=== PATIENT | female | born 1955 | race Caucasian/White ===

== ENCOUNTER → 2017-03-02 | Outpatient (CLI) | payer OTHER | LOC: FIMAGING 09:34 | PROVIDERS: ATTEND Obstetrics & Gynecology | DX: Z12.31 Encounter for screening mammogram for malignant neoplasm of breast (principal) | CPT/HCPCS: G0202 ==

== ENCOUNTER → 2017-09-30 | Outpatient (CLI) | payer OTHER | LOC: BMCIMAGING 13:38 | PROVIDERS: ATTEND Physician Assistant | DX: M16.12 Unilateral primary osteoarthritis, left hip (principal) ==

== ENCOUNTER → 2017-10-29 | Outpatient (CLI) | payer OTHER | LOC: FIMAGING 15:53 | PROVIDERS: ATTEND Obstetrics & Gynecology Gynecology | DX: D25.1 Intramural leiomyoma of uterus (principal); D25.0 Submucous leiomyoma of uterus; N95.0 Postmenopausal bleeding ==

== ENCOUNTER → 2018-03-15 | Outpatient (CLI) | payer OTHER | LOC: FIMAGING 12:57 | PROVIDERS: ATTEND Family Medicine | DX: Z12.31 Encounter for screening mammogram for malignant neoplasm of breast (principal) ==

== ENCOUNTER 2018-05-12 06:24 | Inpatient (IN) | payer OTHER ==
[~2018-05-12 06:24] MED LIST changes: +ACETAMINOPHEN 325 MG TAB PO ONE; -DEXAMETHASONE 10 MG/ML VIAL ONE; +DEXAMETHASONE 4 MG/ML VIAL IVP ONE; +FAMOTIDINE 20 MG TAB PO ONE; +LIDOCAINE 1% 2 ML INJ ID PRN; +LR 1,000 ML IV ONE; +ROPIVACAINE 0.2% 80 MG, EPINEPHrine 0.2 MG, KETOROLAC TROMETHAMINE 30 MG in SYRINGE 0 ML IU ONE; +TRANEXAMIC ACID 3,000 MG in NS (SYRINGE) 50 ML IRR ONE; +ceFAZolin 2 GM/DEXTROSE 100 ML IV ONE
[2018-05-12] MEDS ORDERED: TRANEXAMIC ACID 3,000 MG/50 ML BAG IRR ONE (06:41)
[2018-05-12] MEDS ORDERED: MIDAZOLAM 2 MG/2 ML VIAL IVP ONE (06:52)
--- NOTE | 2018-05-12 06:52 | PDANEPAE ---
ANE History of Present Illness OA here for DINORA ANE Past Medical History - Cardiovascular History Hx Hypertension: Yes Hx Arrhythmias: No Hx Chest Pain: No Hx Coronary Artery / Peripheral Vascular Disease: No Hx CHF / Valvular Disease: No Hx Palpitations: No - Pulmonary History Hx COPD: No Hx Asthma/Reactive Airway Disease: No Hx Recent Upper Respiratory Infection: No Hx Oxygen in Use at Home: No Hx Sleep Apnea: No Sleep Apnea Screening Result - Last Documented: Negative Pulmonary History Comment: cold induces cough - Neurologic History Hx Cerebrovascular Accident: No Hx Seizures: No Hx Dementia: No - Endocrine History Hx Diabetes: No - Renal History Hx Renal Disorders: No - Liver History Hx Hepatic Disorders: No - Neurological & Psychiatric Hx Hx Neurological and Psychiatric Disorders: Yes Neurological / Psychiatric History Comment: situational anxiety - Cancer History Hx Cancer: Yes Cancer History Comment: basal cell - Congenital Disorder History Hx Congenital Disorders: No - GI History Hx Gastrointestinal Disorders: Yes Gastrointestinal History Comment: situational IBS upset with stress - Other Health History Other Health History: sensitivity around mouth. cold sensitive ENT - Chronic Pain History Chronic Pain: Yes (right shoulder pain and right thumb) - Surgical History Prior Surgeries: tonsillectomy as child. tubal. breast augmentation. mastopexy and abdominoplasty. right shoulder surgeries x2. left hand fusion to thumb ANE Review of Systems Review of Systems: - Exercise capacity METS (RN): 5 METS ANE Patient History - Allergies Allergies/Adverse Reactions: No Known Allergies Allergy (Verified 04/14/18 12:08) - Home Medications Home medications: home medication list seen and reviewed Home Medications: Cholecalciferol Vit D3 [Vitamin D3 (*)] 1,000 units PO DAILY 04/09/18 [Last Taken 04/28/18] Cmpnd Progesterone 100mg 100 mg PO HS 04/09/18 [Last Taken 05/06/18] Estradiol [Vivelle-Dot 0.0375MG (*)] 0.0375 mg TD SuWe@0800 04/09/18 [Last Taken 05/05/18] Fluticasone Nasal [Flonase Nasal [place] (RX)] 1 sprays NASAL DAILY PRN 04/09/18 [ Last Taken 04/21/18] Herbals/Supplements -Info Only 1 ea PO DAILY 04/09/18 [Last Taken 04/28/18] Hydrochlorothiazide [HCTZ (*)] 12.5 mg PO DAILY 04/09/18 [Last Taken 05/11/18] Ibuprofen [Motrin (*)] 200 mg PO DAILY PRN 04/09/18 [Last Taken 05/06/18] buPROPion XL [Wellbutrin Xl] 150 mg PO DAILY 04/09/18 [Last Taken 05/12/18] - NPO status NPO Status: no food or drink >8 hours NPO Since - Liquids (Date): 05/12/18 NPO Since - Liquids (Time): 03:40 NPO Since - Solids (Date): 05/11/18 NPO Since - Solids (Time): 19:30 - Anes Hx Anes Hx: no prior problems - Smoking Hx Smoking Status: Former smoker - Alcohol Use Alcohol Use: Occasionally - Family Anes Hx Family Anes Hx: none Family Hx Anesthesia Complications: none ANE Labs/Vital Signs - Vital Signs Blood Pressure: 127/87 Heart Rate: 80 Respiratory Rate: 15 O2 Sat (%): 98 Height: 171.45 cm Weight: 66.678 kg ANE Physical Exam - Airway Neck exam: FROM Mallampati Score: Class 1 Mouth exam: normal dental/mouth exam - Pulmonary Pulmonary: no respiratory distress, clear to auscultation - Cardiovascular Cardiovascular: regular rate and rhythym, no murmur, rub, or gallop - ASA Status ASA Status: II ANE Anesthesia Plan Anesthesia Plan: GA with mask, spinal
--- NOTE | 2018-05-12 07:09 | PDHPUP ---
History & Physical Update H&P update statement: This history and physical update is based on an assessment of the patient which was completed after admission or registration (within 24 hours), but prior to the surgery/procedure. H&P update: H&P reviewed & patient examined, no change in patient's condition since H&P completed
[2018-05-12] MEDS ORDERED: PROPOFOL/EMULSION 500 MG/50 ML BOTTLE IV ONE ×2 (07:13→08:11)
[2018-05-12] MEDS ORDERED: CYCLOBENZAPRINE 10 MG TAB PO PRN (07:24)
[2018-05-12] MEDS ORDERED: ONDANSETRON 4 MG/2 ML VIAL IVP PRN ×2 (07:24→08:48)
[2018-05-12] MEDS ORDERED: LACTULOSE 20 GM/30 ML UDCUP PO PRN (07:24)
[2018-05-12] MEDS ORDERED: DIPHENOXYLATE/ATROPINE LOMOTIL 1 TAB PO PRN (07:24)
[2018-05-12] MEDS ORDERED: diphenhydrAMINE 25 MG CAP PO PRN (07:24)
[2018-05-12] MEDS ORDERED: METOCLOPRAMIDE 10 MG/2 ML VIAL IVP PRN (07:24)
[2018-05-12] MEDS ORDERED: PROMETHAZINE HCL 25 MG/ML INJ IVP PRN (07:24)
[2018-05-12] MEDS ORDERED: POLYETHYLENE GLYCOL 3350 17 GM PKT PO PRN (07:24)
[2018-05-12] MEDS ORDERED: TEMAZEPAM 15 MG CAP PO PRN (07:24)
[2018-05-12] MEDS ORDERED: ONDANSETRON DISINTEGRATING 4 MG TAB PO PRN (07:24)
[2018-05-12] MEDS ORDERED: BISACODYL 10 MG SUPP PR PRN (07:24)
[2018-05-12] MEDS ORDERED: MAGNESIUM HYDROXIDE 30 ML UDCUP PO PRN (07:24)
[2018-05-12] MEDS ORDERED: PROMETHAZINE HCL 25 MG SUPPR PR PRN (07:24)
[2018-05-12] MEDS ORDERED: LR 1,000 ML IV SCH (07:30)
--- NOTE | 2018-05-12 08:42 | POSTOPPROG ---
Post Op Note Date of Operation: 05/12/18 Surgeon: Rakesh Merrill Ride Operator: carmen merrill PA-C Anesthesiologist: Dr. partida Anesthesia: Spinal Pre-op Diagnosis: left hip OA Post-op Diagnosis: same Indication: left hip pain Procedure: L DINORA ant approach, robot assisted Findings: severe hip OA Inf/Abcess present in the surg proc area at time of surgery?: No EBL: 100-500
[2018-05-12] MEDS ORDERED: NALOXONE HCL 0.4 MG/ML INJ IVP PRN (08:48)
[2018-05-12] MEDS ORDERED: HYDROCODONE/APAP 5/325 TAB PO PRN (08:48)
[2018-05-12] MEDS ORDERED: oxyCODONE IR 5 MG TAB PO PRN (08:48)
[2018-05-12] MEDS ORDERED: ACETAMINOPHEN 500 MG TAB PO PRN (08:48)
--- NOTE | 2018-05-12 08:50 | POSTANESTH ---
Post Anesthetic Evaluation Cardiovascular Status: Normal, Stable, Similar to Pre-Op Cond Respiratory Status: Normal, Stable, Similar to Pre-op Cond. Level of Consciousness/Mental Status: Can Participate in Eval, Alert and Oriented Pain Control: Adequate, Prn Tx Ordered Nausea/Vomiting Control: Adequate, Prn Tx Ordered Complications Possibly Related to Anesthesia: None Noted
[2018-05-12] MEDS ORDERED: FLUTICASONE NASAL 120 SPRAYS/16 GM MDI EACHNARE PRN (09:00)
[2018-05-12] MEDS ORDERED: fentaNYL 100 MCG/2 ML INJ ONE (09:00)
[2018-05-12] MEDS: fentaNYL 100 MCG/2 ML INJ IVP PRN ×2 (09:04→09:10)
[2018-05-12] MEDS ORDERED: HYDROmorphONE/DILAUDID 1 MG/ML INJ ONE ×2 (09:16→10:07)
[2018-05-12] MEDS: HYDROmorphONE/DILAUDID 1 MG/ML INJ IVP PRN ×5 (09:19→10:14)
[2018-05-12] MEDS ORDERED: HYDROCODONE/APAP 5/325 TAB ONE (09:33)
[2018-05-12] MEDS ORDERED: DIAZEPAM 5 MG/ML 1 ML SYR IVP PRN (10:21)
[2018-05-12] MEDS ORDERED: KETOROLAC 15 MG/1 ML SDV ONE (10:22)
[2018-05-12] MEDS ORDERED: DIAZEPAM 5 MG/ML 1 ML SYR ONE (10:24)
--- NOTE | 2018-05-12 10:43 | PDMN ---
Medical Necessity Medical necessity: [facility] [place] S560 Hip Arthroplasty: 62 y/o s/p L DINORA, anteriror, CPT 10595, IP only
[2018-05-12] MEDS: SENNOSIDES/DOCUSATE SODIUM TAB PO SCH ×2 (11:19→22:13)
[2018-05-12] MEDS: ACETAMINOPHEN 325 MG TAB PO SCH ×2 (11:42→17:55)
[2018-05-12] MEDS: oxyCODONE IR 5 MG TAB PO PRN ×4 (11:42→22:13)
[2018-05-12] MEDS: ceFAZolin 2 GM/DEXTROSE 100 ML IV SCH (14:59)
[2018-05-12] MEDS: ASPIRIN 81 MG CHEWABLE TAB PO SCH (22:13)
[2018-05-12] MEDS: FAMOTIDINE 20 MG TAB PO SCH (22:14)
[2018-05-13] MEDS: ACETAMINOPHEN 325 MG TAB PO SCH ×3 (00:10→12:30)
[2018-05-13] MEDS: ceFAZolin 2 GM/DEXTROSE 100 ML IV SCH (00:10)
[2018-05-13 04:46] VITALS: BP 105/64
[2018-05-13] MEDS: oxyCODONE IR 5 MG TAB PO PRN ×2 (06:13→09:51)
--- NOTE | 2018-05-13 08:56 | SOAPPROG ---
SOAP Progress Note Assessment/Plan: Assessment: Patient is doing well POD 1 s/p L DINORA Pain management: pain is well controlled on oral pain meds. VTE ppx: recommend aspirin 81 mg BID for 4 weeks, cont JENNY and SCDs Anemia: level is expected initially postop. Asymptomatic. Continue to monitor D/c planning: d/c to home today pending release from PT Plan: 05/13/18 08:55 Subjective: patient is doing well, mild pain this morning, did not receive tylenol as nurse did not give it. patient states she didnt refuse it. denies SOB ,chest pain and N/V Objective: Vital Signs Temp Pulse Resp BP Pulse Ox 36.8 C 71 16 105/64 97 05/13/18 08:00 05/13/18 08:00 05/13/18 08:00 05/13/18 08:00 05/13/18 08:00 Laboratory Results 05/13/18 05:19 05/12/18 05/13/18 05/14/18 05:59 05:59 05:59 Intake Total 3037 500 Output Total 2350 900 Balance 687 -400 LLE; incision dressing is clean and dry, NVI, +pf/df ICD10 Worksheet Patient Problems: Problems Problem Status Onset Primary localized osteoarthritis of left hip Acute
[2018-05-13] MEDS ORDERED: HYDROCHLOROTHIAZIDE 12.5 MG CAP PO SCH (09:00)
[2018-05-13] MEDS ORDERED: buPROPion XL 150 MG TAB PO SCH (09:00)
--- NOTE | 2018-05-13 09:19 | GOP ---
[f rep st] OPERATIVE REPORT DATE OF OPERATION: 05/12/2018 SURGEON: Ej Rodney MD LABOR ECONOMIST: Nicole Rodney, MARIELLA. ANESTHESIA: Spinal. PREOPERATIVE DIAGNOSIS: Left hip osteoarthritis. POSTOPERATIVE DIAGNOSIS: Left hip osteoarthritis. PROCEDURE PERFORMED: Total hip arthroplasty with computer navigation robotic assistance. FINDINGS: ESTIMATED BLOOD LOSS: 200 cc. INDICATIONS: The patient has progressively worsening arthritis of the hip which has failed medical m anagement. The patient understands the treatment option including continued non-operative care and h as selected surgical intervention. The patient has decided to undergo total hip arthroplasty via the direct anterior approach understanding the risks of the procedure including, but not limited to, phillip rovascular injury, infection, persistent pain, component wear and loosening, deep venous thrombosis, pulmonary embolism, limb length inequality (including dislocation), and intraoperative fractures. DESCRIPTION OF PROCEDURE: After proper identification of the patient including verification and delmer ing the surgical site, the patient was brought to the operating room and placed in the supine positio n. All bony prominences were well padded. Anesthesia was induced without complication and intraveno us prophylactic antibiotics were administered prior to skin incision. After prepping and draping in the usual sterile fashion, attention was drawn to the contralateral pel vis for attachment of the computer navigation tracker. Three percutaneous incisions were made over t he iliac crest and the pelvic tracker was affixed using threaded 3.5 mm pins yielding excellent fixat ion. Using computer navigation the patient's leg length and topographical pelvic anatomy was registe red without complication. Attention was then drawn to surgical exposure of the hip. An incision was made with a #10 Bard [place] r blade starting 3 cm lateral and 3 cm distal to the anterior superior iliac spine measuring 8 cm to 10 cm and coursing distally toward the greater trochanter. The skin and subcutaneous tissues were di vided sharply down the fascia celestina. The fascia celestina was incised in line with the skin incision expos ing the underlying tensor fascia celestina muscle. This muscle was bluntly elevated from the fascia and t he first extracapsular Cobra retractor was placed laterally at the junction of the superior femoral n nerissa and greater trochanter. The lateral femoral circumflex vessels were identified, cauterized and d ivided with the Aquamantys bipolar cautery. The deep investing fascia of the TFL was divided to allo w proper mobilization of the muscle preventing damage during retraction. The reflected head of the r ectus femoris muscle was elevated off the anterior hip capsule and a medial Cobra retractor was place d just proximal to the lesser trochanter. The anterior capsulotomy was made sharply from the superolateral acetabulum to the saddle junction of the superior femoral neck and greater trochanter, then coursing inferomedial towards the lesser troc hanter. The retractors were then placed in the intracapsular position for femoral neck osteotomy. C orresponding to preoperative templating the osteotomy was made with the oscillating saw protecting th e greater trochanter and soft tissues. The femoral head was removed from the acetabulum with a corks crew and confirmed to be severely arthritic with exposed bone, deformity and osteophytes. Similar fi nding was confirmed in the acetabulum. The Arch table extension was then placed in 40 degrees external rotation. Attention was then drawn t o the acetabular preparation. After placement of the anterior and posterior Cobra retractors outside the labrum and intrascapular the circumferential labrum was removed sharply. The foveal contents we re then removed and hemostasis obtained with cautery. The anatomy of the acetabulum was then registe red using computer navigation. The first reamer selected was sized using the removed femoral head. Reaming began with robotic bradford t at 40 degrees of abduction and 20 degrees of anteversion using computer navigation. Reaming ceased 0 mm less than the definitive acetabular component. The final acetabular component was inserted usi ng the computer to achieve proper orientation yielding excellent purchase and stability in the acetab ulum. The final acetabular liner was then placed and its seating confirmed. Attention was then turned to the femur. The Arch table extension was placed in extension and adducti on delivering the osteotomized femoral neck into the wound. A 2-pronged femoral elevator was placed at the calcar and another at the tip of the greater trochanter. The posterolateral capsule was relea sed with cautery allowing mobilization of the femur lateral and anterior for preparation. The welding machine feeder al rotators were visualized and preserved. A curette and rongeur were used to open the starting poin t for broaching. Serial broaching started with the #0 broach and ended with the broach that exhibited excellent fit in the proximal femur. A change in pitch during mallet strikes was accompanied by the inability to advance the broach any further. The trial reduction was performed and fluoroscopic rashmi igation was utilized to check limb length. Adjustments were made to equalize limb length accordingly . After the final trials were accepted they were removed and the wound was copiously lavaged. The femo ral component was seated to the same depth as the final broach and the femoral head was impacted onto the clean trunnion. The hip was then reduced for the final time and once more fluoroscopic navigati on used to check that limb length equality was achieved. The wound was irrigated and closed in layers, the fascia celestina with 2-0 Quill, the subcutaneous tissue with a 2-0 Quill, and the skin with Dermabond, including the small incisions for computer navigation . Sterile dressings were applied. Final sharps and sponge counts were accurate. The patient was th en transferred to a hospital bed and brought to the recovery room in stable condition. IMPLANT: Accolade II size 4, 127 acetabular component, 48 mm Trident II. Liner is a Trident X3 32 m m. Head is a Biolox Delta 32 mm -4. /[id number]/MODL
[2018-05-13] MEDS: SENNOSIDES/DOCUSATE SODIUM TAB PO SCH (09:51)
[2018-05-13] MEDS: FAMOTIDINE 20 MG TAB PO SCH (09:52)
[2018-05-13] MEDS: ASPIRIN 81 MG CHEWABLE TAB PO SCH (09:52)
--- NOTE | 2018-05-13 12:15 | GDS ---
[f rep st] DISCHARGE SUMMARY ADMISSION DIAGNOSIS: Left hip osteoarthritis. DISCHARGE DIAGNOSIS: Left hip osteoarthritis. PROCEDURE: Left total hip arthroplasty with robotic assisted. VTE PROPHYLAXIS: Recommend aspirin 81 mg twice daily for 4 weeks. BRIEF DESCRIPTION OF HOSPITAL STAY: Patient was admitted for an elective joint arthroplasty. The pa jocelyne tolerated the procedure well and has passed physical therapy. The patient was given appropriat e antibiotic prophylaxis and venous thromboembolism prophylaxis. The patient's pain was well control led on oral pain medication, patient was holding down food, and had urinated. Decision was made to d ischarge the patient. The patient was given post-operative prescriptions pre-operatively. PLAN: Follow up as scheduled at Dr. Rodney's office 05/31 at 8:45 a.m. /[id number]/MODL
== END 2018-05-13 13:14 | disposition home or self-care (01) | DRG 470 ==
LOC: F3N 06:24
PROVIDERS: ADMIT Orthopaedic Surgery; ATTEND Orthopaedic Surgery
PROC: 0SRB04Z Replacement of Left Hip Joint with Ceramic on Polyethylene Synthetic Substitute, Open Approach (ICD-10-PCS; principal; 2018-05-12 07:15)
PROC: 8E0Y0CZ Robotic Assisted Procedure of Lower Extremity, Open Approach (ICD-10-PCS; principal; 2018-05-12 07:15)
DX: M16.12 Unilateral primary osteoarthritis, left hip (principal); I10 Essential (primary) hypertension; Z87.891 Personal history of nicotine dependence
CPT/HCPCS: 97116-GP; 97161-GP; J0171; J0690; J1100; J1170; J1885; J2250; J2704; J2795; J3010; J3360

== ENCOUNTER → 2018-05-12 | Day surgery (SDC) | payer OTHER ==
[~2018-05-12] MED LIST: DEXAMETHASONE 10 MG/ML VIAL ONE
== END | disposition home or self-care (01) ==
LOC: EDSTATUS 05-10 07:15 → MERGE 06:02 → FSGY 06:02 → F3N 06:02 → UNDOADMIN 06:02
PROVIDERS: ATTEND Orthopaedic Surgery
DX: M16.10 Unilateral primary osteoarthritis, unspecified hip (principal); Z53.09 Procedure and treatment not carried out because of other contraindication
CPT/HCPCS: J1100

== ENCOUNTER → 2018-12-23 | Outpatient (CLI) | payer OTHER | LOC: FIMAGING 13:39 | PROVIDERS: ATTEND Family Medicine | DX: D25.9 Leiomyoma of uterus, unspecified (principal); Z78.0 Asymptomatic menopausal state; Z79.890 Hormone replacement therapy ==

== ENCOUNTER → 2019-02-09 | Outpatient (CLI) | payer OTHER | LOC: FIMAGING 14:47 ==